=== PATIENT | female | born 1965 | race Caucasian/White ===

== ENCOUNTER → 2017-06-06 | Outpatient (CLI) | payer BC ==
[2017-06-06 09:56] LABS: BASOPHILS # (AUTO) 0.1 X10^3/uL (0.0-0.1); BASOPHILS % (AUTO) 0.6 % (0.2-1.0); EOSINOPHILS # (AUTO) 0.2 x10^3/uL (0.0-0.2); HEMATOCRIT 40.3 % (36.0-47.0); HEMOGLOBIN 13.5 g/dL (12.0-16.0); LYMPHOCYTES % (AUTO) 26.6 % (21.0-51.0); MEAN CORPUSCULAR HEMOGLOBIN 28.3 pg (27.0-34.0); MEAN CORPUSCULAR HGB CONC 33.5 g/dL (33.0-35.0); MEAN CORPUSCULAR VOLUME 84.4 fL (80.0-100.0); MEAN PLATELET VOLUME 7.1 fL (7.4-11.0); MONOCYTES # (AUTO) 0.6 x10^3/uL (0.3-0.8); MONOCYTES % (AUTO) 5.1 % (0.0-13.0); NEUTROPHILS # (AUTO) 7.5 x10^3/uL (2.2-4.8); NEUTROPHILS % (AUTO) 65.7 % (42.0-75.0); PLATELET COUNT 353 X10^3/uL (150.0-450.0); RED BLOOD COUNT 4.78 X10^6/uL (3.5-5.4); RED CELL DISTRIBUTION WIDTH 13.3 % (11.6-16.5); WHITE BLOOD COUNT 11.3 X10^3/uL (3.6-10.0)
[2017-06-06 10:16] LABS: ALANINE AMINOTRANSFERASE 32 Units/L (12-78); ALBUMIN 3.9 g/dL (3.4-5.0); ALKALINE PHOSPHATASE 82 Units/L (46-116); ASPARTATE AMINO TRANSFERASE 12 Units/L (15-37); BLOOD UREA NITROGEN 14 mg/dL (7-18); CALCIUM 8.9 mg/dL (8.5-10.1); CARBON DIOXIDE 28.3 mmol/L (21-32); CHLORIDE 105 mmol/L (98-107); CHOL/HDL RATIO 7.8 (0.0-5.0); CHOLESTEROL 217 mg/dL (0-200); CREATININE 0.79 mg/dL (0.55-1.02); HDL CHOLESTEROL 28 mg/dL (40-60); SODIUM 141 mmol/L (136-145); TOTAL PROTEIN 7.7 g/dL (6.4-8.2); TRIGLYCERIDES 205 mg/dL (0-150); eGFR BLACK RACES > 60 (>60); eGFR NON BLACK RACES > 60 (>60)
[2017-06-06 10:31] LABS: ERYTHROCYTE SEDIMENTATION RATE 48 MM/HOUR (0-20)
--- NOTE | 2017-06-06 16:07 | MRI ---
HISTORY: Dizziness, giddiness, vertigo and headache. Study: MRI brain with and without contrast. Comparison: None. Technique: Multiplanar multi-sequence MRI of the brain was obtained. Sagittal T1, axial T1, axial T2 , axial flair images, coronal T1, sagittal T1 post contrast, coronal T1 postcontrast, axial T1 postco ntrast images were obtained after the uneventful administration of 18 cc of omniscan. Findings: The midline structures appear intact. The posterior fossa is unremarkable. The sulcal markings of t he brain are normal in their appearance. Normal stern-white differentiation is maintained. No eviden ce for intraparenchymal hemorrhage or mass can be identified. No extra-axial fluid collections or [place]aco barachnoid hematoma can be seen. Evaluation of the diffusion weighted images demonstrates no evidenc e for acute ischemic change. The cerebral pontine angle is normal in its contour without evidence fo r mass. The ventricular system appears symmetric and nondilated. Postcontrast enhancement demonstrates no evidence for an enhancing lesion such as mass or vascular ma lformation. IMPRESSION: Unremarkable MRI of the brain with and without contrast. Reported By:
== END ==
LOC: RAD 09:25
PROVIDERS: ATTEND Nurse Practitioner Family
DX: R42 Dizziness and giddiness (principal); R79.82 Elevated C-reactive protein (CRP); R70.0 Elevated erythrocyte sedimentation rate; D72.828 Other elevated white blood cell count
CPT/HCPCS: 36415; 70552; 80053; 80061; 85025; 85652; 86140